=== PATIENT | male | born 1975 | race Caucasian/White ===

== ENCOUNTER 2020-03-07 16:35 | Emergency (ER) | payer OTHER, SELFPAY ==
[2020-03-07 16:58] VITALS: BP 145/98; PULSE 85; RESP 20; TEMP 37.3; O2SAT 97; BMI 37.3
[2020-03-07 17:13] VITALS: PULSE 92; RESP 17; O2SAT 96
--- NOTE | 2020-03-07 17:28 | W.ED.NAVMDI ---
HPI - Nausea/Vomiting/Diarrhea General: Chief complaint: Nausea/Vomiting/Diarrhea Stated complaint: V/D Time Seen by Provider: 03/07/20 17:15 History of Present Illness: HPI Narrative: This patient is a 44-year-old male who presents today with vomiting and diarrhea since Friday. He is only kept down a bottle of Gatorade in the past couple of days. He has low-grade fever but denies chest pain or shortness of breath. He denies body aches other than just not feeling well. He has had some cough. He said his brother was positive for COVID but that was back in the early part of January. He is not sure of the dates. He works at [employer] as a cook. He has not had any other known or suspected exposures. MD elicited complaint: nausea, vomiting and diarrhea Onset (ago): day(s) (3) Description of vomiting: watery Description of diarrhea: mucus Associated nausea: Yes Location of pain: None Associated symtoms: Reports fatigue, malaise and nausea; Denies change in vision, chest pain or headache(s) Review of Systems General: Reports: 10 or more systems reviewed and unremarkable except in HPI and below Const: Reports: fatigue and malaise; Denies: fever(s) or chills Eyes: Denies: change in vision ENMT: Denies: odynophagia Card: Denies: chest pain or swelling of feet/ankles Resp: Reports: non-productive cough; Denies: dyspnea or productive cough GI: Reports: nausea, vomiting and diarrhea; Denies: abdominal pain : Denies: flank pain Musc: Denies: neck pain or back pain Skin/Breast: Denies: rash Neuro: Denies: headache(s), numbness in extremities or weakness in extremities [place]/Lymph: Denies: easy bruising or easy bleeding Physical Exam Const: COMMON NORMALS: no acute distress, patient oriented x3, no limitations and alert GENERAL APPEARANCE: cooperative and comfortable NUTRITIONAL APPEARANCE: obese morbidly obese HENMT: HEAD & SCALP: normal to inspection FACE & SINUS: normal facial exam Eye: GENERAL EYE: appearance normal, both eyes and all related structures Neck/C-Spine: COMMON NORMALS: supple, no meningeal signs and no JVD Chest: COMMONS NORMALS: normal inspection of the chest Resp: COMMON NORMALS: normal respiratory effort, No use of accessory muscles and clear to auscultation bilaterally AUSCULTATION: clear to auscultation bilaterally Cardio: COMMON NORMALS: no JVD, regular rate, regular rhythm and No murmurs present (Cardio) RATE: regular rate RHYTHM: regular rhythm GI: COMMON NORMALS: Normal to inspection, nondistended, normoactive bowel sounds present, Soft to palpation and non-tender INSPECTION: Yes normal to inspection AUSCULTATION: Yes normoactive bowel sounds PALPATION: Yes Soft to palpation Back/Pelvis: COMMON NORMALS: thoracic and lumbar spine normal to inspection Extremity: COMMON NORMALS: normal to inspection Neuro: COMMON NORMALS: patient oriented x3, moves all extremities, no focal motor deficits and no sensory deficits noted SENSORIUM/ORIENTATION: Yes alert MENINGEAL SIGNS: Yes no meningeal signs Psych: COMMON NORMALS: mental status grossly normal, cooperative and normal affect Skin: COMMON NORMALS: no rashes or lesions noted and turgor normal GENERAL SKIN EXAM: no rashes or lesions noted and turgor normal Course ED course: I did a send out COVID test on this patient. He does not have any recent known exposures but I have seen people presenting with GI symptoms. After some fluids and medication he was feeling better. He did throw up one episode of blood while he was in the department. It was about 10 to 20 cc. After that he tolerated some fluids orally and was discharged home with follow-up precautions given. Vital Signs: Vital signs: Vital Signs Temperature 99.1 F 03/07/20 16:58 Pulse Rate 85 03/07/20 18:44 Respiratory Rate 18 03/07/20 21:01 Blood Pressure 155/98 03/07/20 18:44 Pulse Oximetry 98 03/07/20 21:01 MDM - Nausea/Vomiting/Diarrhea Lab Data: Labs: Lab Results 03/07/20 03/07/20 03/07/20 Range/Units 17:33 17:40 19:21 WBC 9.1 (4.0-10.0) 10^3/ uL RBC 4.79 (4.1-5.3) 10^6/u L Hgb 13.6 (11.7-16.6) g/dL Hct 44.9 (42.0-52.0) % MCV 93.7 (80-94) fL MCH 28.4 (28.0-34.0) pg MCHC 30.3 (30.0-36.0) g/dL RDW 13.0 (12.1-15.1) % Plt Count 220 (130-400) 10^3/c mm MPV 12.5 H (7.4-10.4) fL Neut % (Auto) 75.9 % Lymph % (Auto) 16.0 % [place] % (Auto) 7.5 % Eos % (Auto) 0.1 % Baso % (Auto) 0.2 % Neut # (Auto) 6.90 (1.8-7.7) 10^3/u L Lymph # (Auto) 1.5 (0.8-4.8) 10^3/u L [place] # (Auto) 0.7 (0.2-0.9) 10^3/u L Eos # (Auto) 0.0 (0.0-0.8) 10^3/u L Baso # (Auto) 0.0 (0.0-0.1) 10^3/u L Nucleated RBC % (a uto) 0 % Nucleated RBCs # 0.0 /100WBC Sodium 137 (136-145) mmol/L Potassium 3.8 (3.5-5.1) mmol/L Chloride 98 (98-107) mmol/L Carbon Dioxide 22 (22-29) mmol/L Anion Gap 20.8 H (5-19) BUN 12 (6-20) mg/dL Creatinine 1.1 (0.7-1.2) mg/dL GFR Calculation 73.1 L (90-130) mL/min Glucose 103 (65-115) mg/dL Calculated Osmolal ity 284 L (285-295) mOsm/k g Calcium 8.8 (8.5-10.5) mg/dL Total Bilirubin 0.3 (0.15-1.2) mg/dL AST 57 H (0-40) U/L ALT 88 H (0-41) U/L Alkaline Phosphata se 55 (40-130) IU/L Total Protein 8.6 (6.6-8.7) g/dL Albumin 4.2 (3.5-5.2) g/dL Globulin 4.4 (1.3-4.6) g/dL Lipase 46 (13-60) U/L Urine Color Yellow (Yellow) Urine Appearance Sl hazy (CLEAR) Urine pH 5 (5-7) Ur Specific Gravit y 1.020 (1.005-1.030) Urine Protein 3+ H (Negative) Urine Glucose (UA) Norm (Normal) Urine Ketones Negative (Negative) Urine Blood 2+ H (Negative) Urine Nitrate Negative (Negative) Urine Bilirubin Neg (Negative) Urine Urobilinogen 1 H (Negative) mg/dL Ur Leukocyte Nurys ase Negative (Negative) Urine RBC 5-10 H (0-2) /hpf Urine WBC None (0-5) /hpf Ur Squamous Epith Cells 5-10 H (0-5) /hpf Amorphous Sediment Not Reportable Urine Bacteria Trace (NONE) /hpf Hyaline Casts 5-10 H /lpf Fine Granular Cast s 25-40 H /lpf Discharge Plan Discharge Patient Disposition: Home Clinical Impression: Vomiting and diarrhea, COVID-19 virus test result unknown Condition: Stable Prescriptions: New ondansetron HCl 4 mg tablet 4 mg PO Q6H PRN (Reason: nausea and vomiting) Qty: 10 RF: 0 Discharge Orders: Discharge Order (Routine); Ordered 03/07/20 Ordered By: Joy Ram Discharge Diet: Usual diet Discharge Activity: Resume usual activity Patient Instructions: Acute Nausea and Vomiting (ED) Activity Restrictions/Additional Instructions: Take sips of clear liquids until you are feeling better, then gradually increase her diet to contain bland foods as well. Once you are feeling better you can return toyour normal diet. Your COVID test should be back within a few days. You will be contacted with the result whether it is positive or negative. You should self quarantine until then. 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
[2020-03-07] MEDS: ondansetron 2 mg/ML SDV 2 mL 4 MG IVP (17:32)
[2020-03-07] MEDS: sodium chloride 0.9% 1,000 ML 999 ML IV ×2 (17:33→19:38)
[2020-03-07 18:44] VITALS: BP 155/98; PULSE 85; RESP 18; O2SAT 96
[2020-03-07 19:02] LABS: Alanine Aminotransferase 88 U/L (0-41); Albumin Level 4.2 g/dL (3.5-5.2); Alkaline Phosphatase 55 IU/L (40-130); Anion Gap 20.8 (5-19); Aspartate Amino Transferase 57 U/L (0-40); Blood Urea Nitrogen 12 mg/dL (6-20); Calcium 8.8 mg/dL (8.5-10.5); Carbon Dioxide 22 mmol/L (22-29); Chloride 98 mmol/L (98-107); Globulin 4.4 g/dL (1.3-4.6); Glomerular Filtration Rate 73.1 mL/min (90-130); Glucose 103 mg/dL (65-115); Lipase 46 U/L (13-60); Osmolality Calculated 284 mOsm/kg (285-295); Potassium 3.8 mmol/L (3.5-5.1); Sodium 137 mmol/L (136-145); Total Bilirubin 0.3 mg/dL (0.15-1.2); Total Protein 8.6 g/dL (6.6-8.7)
[2020-03-07 19:11] LABS: Urine Color Yellow (Yellow)
[2020-03-07 19:12] LABS: Add Urine Microscopic? YES; Bilirubin Urine Neg (Negative); Blood Urine 2+ (Negative); Glucose Urine UA Norm (Normal); Ketones Urine Negative (Negative); Leukocyte Esterase Urine Negative (Negative); Nitrate Urine Negative (Negative); Protein Urine 3+ (Negative); Urine Appearance SL Hazy (CLEAR); Urobilinogen Urine 1 mg/dL (Negative); pH Urine 5 (5-7)
[2020-03-07 19:21] LABS: Fine Granular Casts Urine 25-40 /lpf
[2020-03-07 19:22] LABS: Add Urine Culture? Yes; Bacteria Urine TRACE /hpf
[2020-03-07 19:25] LABS: Basophils % 0.2 %; Eosinophils % 0.1 %; Hematocrit 44.9 % (42.0-52.0); Hemoglobin 13.6 g/dL (11.7-16.6); Lymphocytes # 1.5 10^3/uL (0.8-4.8); Mean Corpuscular HGB Conc 30.3 g/dL (30.0-36.0); Mean Corpuscular Hemoglobin 28.4 pg (28.0-34.0); Mean Corpuscular Volume 93.7 fL (80-94); Mean Platelet Volume 12.5 fL (7.4-10.4); Monocytes # 0.7 10^3/uL (0.2-0.9); Monocytes % 7.5 %; Neutrophils % 75.9 %; Nucleated Red Blood Cells % 0 %; Platelet Count 220 10^3/cmm (130-400); Red Blood Count 4.79 10^6/uL (4.1-5.3); White Blood Count 9.1 10^3/uL (4.0-10.0)
[2020-03-07] MEDS: pantoprazole 40 mg SDV 80 MG IVP (19:37)
[2020-03-07] MEDS: metoclopramide 5 mg/mL SDV 2 mL 10 MG IVP (19:38)
--- NOTE | 2020-03-07 20:46 | PC.NURSE ---
pt provided with water. pt tolerated water well. pt denies any nausea or vomiting. Leanna MORFIN notified.
[2020-03-07 21:01] VITALS: RESP 18; O2SAT 98
[2020-03-10 12:22] LABS: Quest SARS-CoV-2 RNA DETECTED (NOT DETECTED)
--- NOTE | 2020-03-10 17:10 | PC.NURSE ---
Pt called and notified of positive COVID result.
== END 2020-03-07 21:02 | disposition home or self-care (01) ==
PROVIDERS: Nurse Practitioner Family; Emergency Provider Emergency Medicine
DX: U07.1 COVID-19 (principal); R50.9 Fever, unspecified
CPT/HCPCS: 12345; 36415; 80053; 81001; 83690; 85025; 87086; 87635; 96361; 96374; 96375; 99283; 99284; C9113; J2405; J2765; J7030

== ENCOUNTER 2021-05-27 08:57 | Emergency (ER) | payer SELFPAY ==
[2021-05-27 09:07] VITALS: BP 186/111; PULSE 60; RESP 15; TEMP 36.8; O2SAT 97; BMI 36.3
--- NOTE | 2021-05-27 09:23 | W.ED.BACK ---
HPI - Back Pain/Injury General: Chief Complaint: Back Pain/Injury Stated Complaint: Pain in lower R of back Time Seen by Provider: 05/27/21 09:04 Source: patient Mode of arrival: ambulatory Limitations: no limitations History of Present Illness: HPI Narrative: Patient is a 46-year-old male who presents to ED today with a complaint of right-sided back pain that began around 12-1 AM this morning. He states pain woke him up from sleep. Patient believes he could have a kidney infection. He has no history of pyelonephritis. No history of kidney stones. Patient denies any recent activities for musculoskeletal strains. Patient states he has had a few episodes of nausea and vomiting since pain began. Reports some urinary frequency but no dysuria or hematuria. MD elicited complaint: back pain Onset (ago): hour(s) Timing: constant Severity: severe Similar Symptoms Previously: No Quality: sharp Location: right flank Radiation: none Exacerbating factors: none Relieving factors: none Context: other (awoke with pain) Associated symptoms: Reports nausea and vomiting; Deny abdominal pain, chills, dysuria, fatigue, fever(s) or hematuria Work related injury: No Review of Systems Const: Denies: fever(s), chills, body aches, fatigue or malaise Card: Denies: chest pain Resp: Denies: dyspnea GI: Reports: nausea and vomiting; Denies: abdominal pain or diarrhea : Reports: flank pain and urinary frequency; Denies: difficulty urinating, dysuria, urinary hesitancy, urinary dribbling, change in urine stream, hematuria, testicular pain, testicular mass or scrotal swelling Musc: Reports: back pain; Denies: neck pain, extremity pain or joint pain Skin/Breast: Denies: rash Neuro: Denies: headache(s), numbness in extremities, weakness in extremities, sensory changes or dizziness Physical Exam Const: COMMON NORMALS: no acute distress, patient oriented x3, no limitations and alert GENERAL APPEARANCE: cooperative NUTRITIONAL APPEARANCE: obese morbidly obese ORIENTATION/CONSCIOUSNESS: Yes awake, Yes oriented to person, Yes oriented to place and Yes oriented to time HENMT: COMMON NORMALS: normocephalic and atraumatic HEAD & SCALP: normocephalic and atraumatic Resp: COMMON NORMALS: normal respiratory effort and clear to auscultation bilaterally AUSCULTATION: clear to auscultation bilaterally Cardio: COMMON NORMALS: regular rate and regular rhythm RATE: regular rate RHYTHM: regular rhythm GI: COMMON NORMALS: Normal to inspection, nondistended, normoactive bowel sounds present and Soft to palpation PALPATION: Yes Soft to palpation OTHER: exam limited secondary to morbid obesity : BLADDER/KIDNEY EXAM: Yes CVA tenderness on the right Back/Pelvis: COMMON NORMALS: thoracic and lumbar spine normal to inspection, no thoracic nor lumbar tenderness and thoraco-lumbar ROM normal GENERAL BACK: Yes CVA tenderness Extremity: COMMON NORMALS: normal to inspection Neuro: COMMON NORMALS: patient oriented x3 SENSORIUM/ORIENTATION: Yes alert, Yes oriented to person, Yes oriented to place and Yes oriented to time Skin: COMMON NORMALS: no rashes or lesions noted GENERAL SKIN EXAM: no rashes or lesions noted Course Vital Signs: Vital signs: Vital Signs Temperature 98.3 F 05/27/21 09:59 Pulse Rate 82 05/27/21 13:39 Respiratory Rate 16 05/27/21 13:39 Blood Pressure 181/93 05/27/21 12:52 Pulse Oximetry 99 05/27/21 13:39 MDM - Back Pain/Injury MDM Narrative: Medical decision making narrative: Patient has a stone to his distal right ureter as well as one near his UVJ. Vital signs are normal. Pain controlled here in the ED. UA showing no evidence of infection. Patient will be given urine strainer and discharged home on Flomax, pain/nausea medications and information placed with case management to get him set up with urology follow-up. Return to ED precautions given. Lab Data: Labs: Lab Results 05/27/21 05/27/21 05/27/21 09:56 13:00 13:00 WBC 14.0 10^3/uL H 10 ^3/uL (4.0-10.0) RBC 4.34 10^6/uL 10^6 /uL (4.1-5.3) Hgb 12.5 g/dL g/dL (11.7-16.6) Hct 39.9 % L % (42.0-52.0) MCV 91.9 fl fl (80-94) MCH 28.8 pg pg (28.0-34.0) MCHC 31.3 g/dL g/dL (30.0-36.0) RDW 12.7 % % (12.1-15.1) Plt Count 292 10^3/cmm 10^3 /cmm (130-400) MPV 11.6 fL H fL (7.4-10.4) Neut % (Auto) 82.1 % % Lymph % (Auto) 10.5 % % [place] % (Auto) 6.1 % % Eos % (Auto) 0.6 % % Baso % (Auto) 0.3 % % Neut # (Auto) 11.50 10^3/uL H 1 0^3/uL (1.8-7.7) Lymph # (Auto) 1.5 10^3/uL 10^3/ uL (0.8-4.8) [place] # (Auto) 0.9 10^3/uL 10^3/ uL (0.2-0.9) Eos # (Auto) 0.1 10^3/uL 10^3/ uL (0.0-0.8) Baso # (Auto) 0.0 10^3/uL 10^3/ uL (0.0-0.1) Nucleated RBC % (a uto) 0 % % Nucleated RBCs # 0.0 /100WBC /100W BC Sodium 140 mmol/L mmol/L (136-145) Potassium 4.3 mmol/L mmol/L (3.5-5.1) Chloride 104 mmol/L mmol/L (98-107) Carbon Dioxide 22 mmol/L mmol/L (22-29) Anion Gap 18.3 (5-19) BUN 11 mg/dL mg/dL (6-20) Creatinine 1.1 mg/dL mg/dL (0.7-1.2) GFR Calculation 72.4 mL/min L mL/ min (90-130) Glucose 93 mg/dL mg/dL (65-115) Calculated Osmolal ity 289 mOsm/kg mOsm/ kg (285-295) Calcium 8.6 mg/dL mg/dL (8.5-10.5) Total Bilirubin 0.2 mg/dL mg/dL (0.15-1.2) AST 22 U/L U/L (0-40) ALT 31 U/L U/L (0-41) Alkaline Phosphata se 70 IU/L IU/L (40-130) Total Protein 8.9 g/dL H g/dL (6.6-8.7) Albumin 4.2 g/dL g/dL (3.5-5.2) Globulin 4.7 g/dL H g/dL (1.3-4.6) Urine Color Yellow (Yellow) Urine Appearance Clear (CLEAR) Urine pH 5 (5-7) Ur Specific Gravit y 1.020 (1.005-1.030) Urine Protein Neg (Negative) Urine Glucose (UA) Norm (Normal) Urine Ketones Negative (Negative) Urine Blood 2+ H (Negative) Urine Nitrate Negative (Negative) Urine Bilirubin Neg (Negative) Urine Urobilinogen Norm mg/dL mg/dL (Negative) Ur Leukocyte Nurys ase Negative (Negative) Urine RBC 5-10 /hpf H /hpf (0-2) Urine WBC None /hpf /hpf (0-5) Ur Squamous Epith Cells 5-10 /hpf H /hpf (0-5) Amorphous Sediment Not Reportable Urine Bacteria Trace /hpf /hpf (NONE) Imaging Data^: CT Abd/Pel: Radiologist's impression: [employer] [place] [address] [address] [address] Scan Report Signed Patient: Jed Rios Unit #: [id number] : [id number] Age/Sex: 46 / M ADM Date: 05/27/21 Loc: ER Room/Bed: Attending Dr: Ordering Provider/Ordering MD: Nikia Howard Date of Service: 05/27/21 Procedure(s): CT kidney stone [address] Accession Number(s): [id number] Report Number: [id number] PROCEDURE INFORMATION: Exam: CT Abdomen And Pelvis Without Contrast Exam date and time: 05/27/2021 11:22 AM Age: 46 years old Clinical indication: Right flank abdominal pain. TECHNIQUE: Imaging protocol: Computed tomography of the abdomen and pelvis without contrast. Radiation optimization: All CT scans at this facility use at least one of these dose optimization techniques: automated exposure control; mA and/or kV adjustment per patient size (includes targeted exams where dose is matched to clinical indication); or iterative reconstruction. COMPARISON: No relevant prior studies available. RADIATION DOSE METRICS: Total DLP (mGy-cm): 1761.9 FINDINGS: Lungs: The lung bases are unremarkable. No pericardial effusion. There is mild lymphadenopathy adjacent to the distal esophagus. The largest lymph node measures 1.2 x 1.2 cm. Very small hiatal hernia. Liver: The liver is enlarged measuring 22.6 cm. Gallbladder and bile ducts: The gallbladder is unremarkable. Pancreas: The pancreas is unremarkable. Spleen: The spleen is unremarkable. Adrenal glands: The adrenal glands are unremarkable. Kidneys and ureters: There is an obstructive 3.7 mm stone in the distal right ureter with mild to moderate resultant hydronephrosis and perinephric/periureteric stranding. Nonobstructive left renal stones are noted. There is a stone in the right ureterovesical junction or bladder immediately adjacent to the right ureterovesical junction that measures 5.4 mm. Stomach and bowel: The stomach and small bowel are unremarkable. The colon is unremarkable. Appendix: The appendix is unremarkable. Intraperitoneal space: No free intraperitoneal air is seen. Vasculature: No abdominal aortic aneurysm. Lymph nodes: A periportal lymph node measures 1.5 x 2.3 cm. Urinary bladder: See Kidneys and ureters finding. Reproductive: The prostate measures 3.6 x 3.4 cm. Bones/joints: No acute fracture is seen. Soft tissues: Small fat containing umbilical hernia. CT/CT kidney stone [id number] IMPRESSION: 1. There is an obstructive 3.7 mm stone in the distal right ureter with mild to moderate resultant hydronephrosis and perinephric/periureteric stranding. There is a stone in the right ureterovesical junction or bladder immediately adjacent to the right ureterovesical junction that measures 5.4 mm. Nonobstructive left renal stones are noted. 2. Hepatomegaly with periportal lymphadenopathy. 3. Mild lymphadenopathy in the inferior mediastinum adjacent to the esophagus. Dictated By: Kaiden Seth Signed By: Kaiden Seth Signed Date/Time: 05/27/21 1215 DD/ 1122 Discharge Plan Discharge Patient Disposition: Home Clinical Impression: Calculus of right ureter Condition: Stable Prescriptions: New hydrocodone-acetaminophen 5-325 mg tablet 1 tab PO Q4H PRN (Reason: pain) Qty: 15 RF: 0 Flomax 0.4 mg capsule 0.4 mg PO DAILY Qty: 10 RF: 0 Continued ondansetron HCl 4 mg tablet 4 mg PO Q6H PRN (Reason: nausea and vomiting) Qty: 10 RF: 0 Discharge Orders: Discharge ED (Routine); Ordered 05/27/21 Ordered By: Nikia Howard Referrals: Cameron Villalpando MD [Physician] - Patient Instructions: Ureteral Stones (ED), Opioid Safety Activity Restrictions/Additional Instructions: [facility] is committed to fighting the nationwide opiate epidemic. We are providing ALL patients with information regarding opiate safety. If you received opiate pain medication during your stay or if you received a prescription for opiate pain medication-please review this handout. If not, you may disregard. Thank you. As we discussed begin straining your urine. If you pass stones please bring these with you to Dr. Villalpando's follow-up appointment. Increase fluid intake as much as possible-water is best. You may take pain/nausea medications as needed. Take the Flomax daily as directed. You should hear from case management tomorrow for your follow-up appointment with urology. You need to return to the emergency department for worsening or uncontrollable pain at home, repetitive episodes of vomiting, fevers greater than 100.4, inability to urinate, or any other concerns you may have. 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
[2021-05-27] MEDS: ondansetron 2 mg/ML SDV 2 mL 4 MG IM (09:43)
[2021-05-27] MEDS: morphine 4 mg/mL SDV 1 mL IM (09:43)
[2021-05-27 09:59] VITALS: BP 180/92; PULSE 60; RESP 15; TEMP 36.8; O2SAT 97
[2021-05-27 10:53] VITALS: PULSE 83; RESP 16; O2SAT 98
[2021-05-27 11:17] LABS: Add Urine Microscopic? YES; Bilirubin Urine Neg (Negative); Blood Urine 2+ (Negative); Glucose Urine UA Norm (Normal); Ketones Urine Negative (Negative); Leukocyte Esterase Urine Negative (Negative); Nitrate Urine Negative (Negative); Protein Urine Neg (Negative); Urine Appearance Clear (CLEAR); Urine Color Yellow (Yellow); Urobilinogen Urine Norm (Negative); pH Urine 5 (5-7)
[2021-05-27 11:21] LABS: Add Urine Culture? No; Bacteria Urine TRACE /hpf
--- NOTE | 2021-05-27 11:22 | CTR_ITS ---
PROCEDURE INFORMATION: Exam: CT Abdomen And Pelvis Without Contrast Exam date and time: 05/27/2021 11:22 AM Age: 46 years old Clinical indication: Right flank abdominal pain. TECHNIQUE: Imaging protocol: Computed tomography of the abdomen and pelvis without contrast. Radiation optimization: All CT scans at this facility use at least one of these dose optimization techniques: automated exposure control; mA and/or kV adjustment per patient size (includes targeted exams where dose is matched to clinical indication); or iterative reconstruction. COMPARISON: No relevant prior studies available. RADIATION DOSE METRICS: Total DLP (mGy-cm): 1761.9 FINDINGS: Lungs: The lung bases are unremarkable. No pericardial effusion. There is mild lymphadenopathy adjacent to the distal esophagus. The largest lymph node measures 1.2 x 1.2 cm. Very small hiatal hernia. Liver: The liver is enlarged measuring 22.6 cm. Gallbladder and bile ducts: The gallbladder is unremarkable. Pancreas: The pancreas is unremarkable. Spleen: The spleen is unremarkable. Adrenal glands: The adrenal glands are unremarkable. Kidneys and ureters: There is an obstructive 3.7 mm stone in the distal right ureter with mild to moderate resultant hydronephrosis and perinephric/periureteric stranding. Nonobstructive left renal stones are noted. There is a stone in the right ureterovesical junction or bladder immediately adjacent to the right ureterovesical junction that measures 5.4 mm. Stomach and bowel: The stomach and small bowel are unremarkable. The colon is unremarkable. Appendix: The appendix is unremarkable. Intraperitoneal space: No free intraperitoneal air is seen. Vasculature: No abdominal aortic aneurysm. Lymph nodes: A periportal lymph node measures 1.5 x 2.3 cm. Urinary bladder: See Kidneys and ureters finding. Reproductive: The prostate measures 3.6 x 3.4 cm. Bones/joints: No acute fracture is seen. Soft tissues: Small fat containing umbilical hernia. CT/CT kidney stone [id number] IMPRESSION: 1. There is an obstructive 3.7 mm stone in the distal right ureter with mild to moderate resultant hydronephrosis and perinephric/periureteric stranding. There is a stone in the right ureterovesical junction or bladder immediately adjacent to the right ureterovesical junction that measures 5.4 mm. Nonobstructive left renal stones are noted. 2. Hepatomegaly with periportal lymphadenopathy. 3. Mild lymphadenopathy in the inferior mediastinum adjacent to the esophagus.
[2021-05-27 12:52] VITALS: BP 181/93; PULSE 81; RESP 16; O2SAT 97
[2021-05-27 13:04] LABS: Basophils % 0.3 %; Eosinophils # 0.1 10^3/uL (0.0-0.8); Eosinophils % 0.6 %; Hematocrit 39.9 % (42.0-52.0); Hemoglobin 12.5 g/dL (11.7-16.6); Lymphocytes # 1.5 10^3/uL (0.8-4.8); Lymphocytes % 10.5 %; Mean Corpuscular HGB Conc 31.3 g/dL (30.0-36.0); Mean Corpuscular Hemoglobin 28.8 pg (28.0-34.0); Mean Corpuscular Volume 91.9 fl (80-94); Mean Platelet Volume 11.6 fL (7.4-10.4); Monocytes # 0.9 10^3/uL (0.2-0.9); Monocytes % 6.1 %; Neutrophils % 82.1 %; Nucleated Red Blood Cells % 0 %; Platelet Count 292 10^3/cmm (130-400); Red Blood Count 4.34 10^6/uL (4.1-5.3); Red Cell Distribution Width 12.7 % (12.1-15.1)
[2021-05-27 13:23] LABS: Alanine Aminotransferase 31 U/L (0-41); Albumin Level 4.2 g/dL (3.5-5.2); Alkaline Phosphatase 70 IU/L (40-130); Anion Gap 18.3 (5-19); Aspartate Amino Transferase 22 U/L (0-40); Blood Urea Nitrogen 11 mg/dL (6-20); Calcium 8.6 mg/dL (8.5-10.5); Carbon Dioxide 22 mmol/L (22-29); Chloride 104 mmol/L (98-107); Creatinine Clr Calc Pharmacy 117.3528; Globulin 4.7 g/dL (1.3-4.6); Glomerular Filtration Rate 72.4 mL/min (90-130); Glucose 93 mg/dL (65-115); Osmolality Calculated 289 mOsm/kg (285-295); Potassium 4.3 mmol/L (3.5-5.1); Sodium 140 mmol/L (136-145); Total Bilirubin 0.2 mg/dL (0.15-1.2); Total Protein 8.9 g/dL (6.6-8.7)
[2021-05-27 13:39] VITALS: PULSE 82; RESP 16; O2SAT 99
--- NOTE | 2021-05-29 09:29 | DCPLANNER ---
regional project manager had message to schedule a follow up appointment for patient with Dr. Villalpando. regional project manager emailed patients information to Nick Perez and Twyla at the office of Dr. Villalpando. Patients information will be printed and reviewed. Clinic will call patient with appointment information.
--- NOTE | 2021-06-07 08:40 | DCPLANNER ---
Patient had a follow up appointment scheduled for 05.31.[address] Villalpando - patient did attend appointment.
== END 2021-05-27 13:42 | disposition home or self-care (01) ==
PROVIDERS: Emergency Provider Physician Assistant
DX: N20.1 Calculus of ureter (principal)
CPT/HCPCS: 74176; 80053; 81001; 85025; 96372; 99284; J2270; J2405

== ENCOUNTER 2021-05-31 12:50 | Outpatient (CLI) | payer SELFPAY ==
--- NOTE | 2021-05-31 12:30 | XR_ITS ---
WS: [id number], AP view, 05/31/2021 Clinical Data: CALCULUS OF RIGHT URETER Comparison: [facility], 10/30/2005. CT abdomen and pelvis, 05/27/2021. Findings: No abnormal intraabdominal masses or calcifications are seen. There is no dilatated small bowel or ev idence of obstruction. Fecal material obscures detail over both kidneys. The right UVJ stone seen on the CT scan is not visu alized. XR/XR KUB [id number] Impression: Negative KUB.
== END 2021-05-31 12:51 | disposition home or self-care (01) ==
LOC: RAD 12:53
PROVIDERS: PCP Urology; Visit Provider Urology
DX: N20.1 Calculus of ureter (principal)
CPT/HCPCS: 74018; 81003

== ENCOUNTER 2023-08-24 02:13 | Emergency (ER) | payer SELFPAY ==
[2023-08-24 02:20] VITALS: BP 177/82; PULSE 76; RESP 18; TEMP 36.6; O2SAT 96; BMI 37.5
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
[2023-08-24 03:18] VITALS: RESP 18
[2023-08-24] MEDS: oxyCODONE-APAP 5-325 mg Tablet 2 TAB PO (03:18)
[2023-08-24 03:20] VITALS: BP 177/82; PULSE 82; RESP 18; O2SAT 94
== END 2023-08-24 03:15 | disposition home or self-care (01) ==
PROVIDERS: Emergency Provider Emergency Medicine
DX: S52.124A Nondisplaced fracture of head of right radius, initial encounter for closed fracture (principal); Z87.891 Personal history of nicotine dependence; V29.31XA Electric (assisted) bicycle (driver) (passenger) injured in unspecified nontraffic accident, initial encounter
CPT/HCPCS: 29105; 73080; 99283

== ENCOUNTER 2023-09-05 06:00 | Outpatient (CLI) | payer SELFPAY | END 2023-09-05 06:01 | disposition home or self-care (01) | LOC: SOT 09-08 12:21 | PROVIDERS: Visit Provider Student in an Organized Health Care Education/Training Program | DX: Z46.89 Encounter for fitting and adjustment of other specified devices (principal); M25.531 Pain in right wrist | CPT/HCPCS: L3807 ==

== ENCOUNTER → 2023-09-05 11:13 | Outpatient (BNVA) | payer SELFPAY | PROVIDERS: Referring Provider Emergency Medicine; Visit Provider Student in an Organized Health Care Education/Training Program | DX: S52.121A Displaced fracture of head of right radius, initial encounter for closed fracture; V22 Motorcycle rider injured in collision with two- or three-wheeled motor vehicle | CPT/HCPCS: 73080; 73090 ==